=== PATIENT | female | born 1975 | race Hispanic/Latino ===

== ENCOUNTER 2020-11-01 19:49 | Inpatient (IN) | payer OTHER ==
[~2020-11-01] VITALS: Ht 162.6 cm; Wt 109.3 kg
[2020-11-01 20:47] LABS: ABG BASE EXCESS 1.9 mmol/L (-2.0-3.0); ABG OXYGEN SATURATION 91.4 % (95.0-99.0); ABG PCO2 35 mmHg (32-45)
[2020-11-01 21:22] LABS: CREATININE 0.7 mg/dL (0.5-1.5); INR 0.92 (0.85-1.15); PARTIAL THROMBOPLASTIN TIME 31.9 SEC (26.3-35.5); POTASSIUM 3.1 mmol/L (3.5-5.1)
[2020-11-01 21:27] LABS: ALBUMIN 3.3 g/dL (3.5-5.0); BILIRUBIN,TOTAL 0.4 mg/dL (0.2-1.0); TOTAL PROTEIN, SERUM 8.4 g/dL (6.0-8.3)
[2020-11-01 21:44] LABS: BASOPHILS % (AUTO) 0.2 % (0.0-5.0); EOSINOPHILS % (AUTO) 1.8 % (0.0-8.0); HEMATOCRIT 41.9 % (36-48); MEAN CORPUSCULAR HEMOGLOBIN 29.5 pg (27.0-33.0); MEAN CORPUSCULAR HGB CONC 33.2 g/dL (32.0-36.0); MONOCYTES % (AUTO) 9.6 % (3.0-13.0); NEUTROPHILS % (AUTO) 61.9 % (40.0-77.0); PLATELET COUNT (AUTO) 238 K/uL (130-400); RED BLOOD CELL COUNT(AUTO) 4.71 MIL/uL (4.00-5.50); RED CELL DISTRIBUTION WIDTH 12.6 % (11.0-15.5); WHITE BLOOD COUNT (AUTO) 6.5 K/uL (4.8-10.8)
[2020-11-01] MEDS ORDERED: DEXAMETHASONE SOD PHOSPHATE 10MG/ML 1ML VIAL ONE ×2 (21:44→21:58)
[2020-11-01] MEDS ORDERED: SODIUM CHLORIDE 0.9% 1000ML 1,000 ML IV ONE (21:44)
[2020-11-01 21:45] LABS: B-TYPE NATRIURETIC PEPTIDE < 5 pg/mL (0-100)
[2020-11-01] MEDS ORDERED: ACETAMINOPHEN EXTRA STRENGTH 500 MG TABLET ONE ×2 (21:45→21:51)
[2020-11-01] MEDS ORDERED: CEFTRIAXONE SODIUM 1 GM ONE (21:45)
[2020-11-01] MEDS ORDERED: AZITHROMYCIN 500MG+NS 250ML 250 ML IV ONE (21:45)
[2020-11-01] MEDS ORDERED: DOXYCYCLINE 100MG+NS 250ML 250 ML IV ONE (21:58)
[2020-11-01 22:27] LABS: APPEARANCE,URINE Clear (CLEAR); BILIRUBIN,URINE Small (NEGATIVE); COLOR,URINE Dark Yellow (YELLOW); GLUCOSE, URINE (UA) Negative (NEGATIVE); KETONES,URINE >=80 mg/dL (NEGATIVE); LEUKOCYTE ESTERASE ,URINE Negative (NEGATIVE); NITRATE,URINE Negative (NEGATIVE); OCCULT BLOOD,URINE Trace (NEGATIVE); PROTEIN,URINE POS 2+ mg/dL (NEGATIVE)
[2020-11-01] MEDS ORDERED: ACETAMINOPHEN 325 MG TAB PO PRN ×2 (22:30)
[2020-11-01] MEDS ORDERED: CEFTRIAXONE SODIUM 1 GM IV SCH (22:30)
[2020-11-01] MEDS ORDERED: PHARMACY COMMUNICATION**REMDESIVIR ORDER MISC SCH (22:30)
[2020-11-01] MEDS ORDERED: ERGOCALCIFEROL (VITAMIN D2) 50,000 UNIT CAPSULE PO ONE (22:30)
[2020-11-01] MEDS ORDERED: LACTULOSE 20 GM/30 ML UDCUP PO PRN (22:30)
[2020-11-01] MEDS ORDERED: ONDANSETRON HCL 4 MG/2 ML VIAL IV PRN (22:30)
[2020-11-01 22:43] LABS: BACTERIA,URINE Few /HPF (None Seen); MUCUS,URINE Few LPF (None Seen); WBC,URINE 0-1 /HPF (0-1)
[2020-11-01 23:07] LABS: CRP QUANTITATIVE 36.8 mg/L (0.00-9.0)
[2020-11-01] MEDS ORDERED: MAG HYDROX/AL HYDROX/SIMETH ES 30 ML SUSP UDCUP ONE (23:18)
[2020-11-01] MEDS ORDERED: LIDOCAINE HCL 2% VISCOUS 15 ML UDCUP ONE (23:18)
[2020-11-01] MEDS ORDERED: POTASSIUM CHLORIDE 10% ELIXIR 20 MEQ/15 ML UDCUP PO PRN (23:30)
[2020-11-01] MEDS ORDERED: LIDOCAINE HCL-MPF 1% 2ML VIAL IV PRN (23:30)
[2020-11-01] MEDS ORDERED: POTASSIUM CHLORIDE 10MEQ/100ML 100 ML IV PRN (23:30)
[2020-11-01] MEDS ORDERED: ALBUTEROL INHALER 90MCG/INH IH PRN (23:30)
[2020-11-02 03:48] LABS: BASOPHILS % (AUTO) 0.3 % (0.0-5.0); HEMATOCRIT 39.4 % (36-48); LYMPHOCYTES % (AUTO) 28.6 % (21.0-51.0); MEAN CORPUSCULAR HEMOGLOBIN 29.7 pg (27.0-33.0); MONOCYTES % (AUTO) 3.4 % (3.0-13.0); NEUTROPHILS % (AUTO) 67.2 % (40.0-77.0); PLATELET COUNT (AUTO) 224 K/uL (130-400); RED BLOOD CELL COUNT(AUTO) 4.38 MIL/uL (4.00-5.50); RED CELL DISTRIBUTION WIDTH 12.6 % (11.0-15.5); WHITE BLOOD COUNT (AUTO) 3.8 K/uL (4.8-10.8)
[2020-11-02] MEDS ORDERED: IOHEXOL-350 75 ML VIAL IV ONE (03:54)
[2020-11-02 05:11] LABS: ALBUMIN 2.9 g/dL (3.5-5.0); BILIRUBIN,TOTAL 0.3 mg/dL (0.2-1.0); CREATININE 0.7 mg/dL (0.5-1.5); CRP QUANTITATIVE 32.7 mg/L (0.00-9.0); POTASSIUM 3.7 mmol/L (3.5-5.1); TOTAL PROTEIN, SERUM 7.7 g/dL (6.0-8.3)
[2020-11-02] MEDS ORDERED: ENOXAPARIN SODIUM 60 MG/0.6 ML SQ ONE (08:21)
[2020-11-02] MEDS ORDERED: ASCORBIC ACID 500 MG TAB ONE (08:22)
[2020-11-02] MEDS ORDERED: ZINC SULFATE 220 CAPSULE ONE (08:22)
[2020-11-02] MEDS ORDERED: CEFTRIAXONE SODIUM 1 GM ONE (08:22)
[2020-11-02] MEDS ORDERED: FAMOTIDINE 20MG TAB 20 MG TAB ONE (08:22)
[2020-11-02] MEDS ORDERED: PHARMACY COMMUNICATION MISC SCH (08:30)
[2020-11-02] MEDS: FAMOTIDINE 20MG TAB 20 MG TAB PO SCH ×2 (09:00→21:00)
[2020-11-02] MEDS ORDERED: ENOXAPARIN SODIUM 40 MG/0.4 ML SYRINGE SQ SCH (09:00)
[2020-11-02] MEDS: ZINC SULFATE 220 CAPSULE PO SCH (09:00)
[2020-11-02] MEDS: ASCORBIC ACID 500 MG TAB PO SCH (09:00)
[2020-11-02 12:43] LABS: HEMOGLOBIN A1C 5.9 % (4.0-6.0)
[2020-11-02] MEDS ORDERED: SODIUM CHLORIDE 0.9% 250 ML IV ONE ×2 (13:38→17:08)
[2020-11-02 20:27] VITALS: BP 137/74
[2020-11-02] MEDS: INSULIN GLARGINE 100 UNITS/ML 10 ML VIAL SQ SCH (21:00)
[2020-11-02] MEDS: AZITHROMYCIN 500MG+NS 250ML 250 ML IV SCH ×2 (21:33→23:20)
[2020-11-02] MEDS: DEXAMETHASONE SOD PHOSPHATE 4 MG/ML 1ML VIAL IVP SCH (21:33)
[2020-11-02] MEDS: ENOXAPARIN SODIUM 60 MG/0.6 ML SQ SCH (21:36)
[2020-11-02 23:25] VITALS: BP 108/63
[2020-11-03 04:12] VITALS: BP 112/71
[2020-11-03 04:19] LABS: BASOPHILS % (AUTO) 0.1 % (0.0-5.0); HEMATOCRIT 36.2 % (36-48); LYMPHOCYTES % (AUTO) 7.8 % (21.0-51.0); MEAN CORPUSCULAR HEMOGLOBIN 29.5 pg (27.0-33.0); MEAN CORPUSCULAR HGB CONC 32.9 g/dL (32.0-36.0); MEAN CORPUSCULAR VOLUME 89.8 fL (79-99); MONOCYTES % (AUTO) 4.3 % (3.0-13.0); NEUTROPHILS % (AUTO) 87.3 % (40.0-77.0); PLATELET COUNT (AUTO) 266 K/uL (130-400); RED BLOOD CELL COUNT(AUTO) 4.03 MIL/uL (4.00-5.50); RED CELL DISTRIBUTION WIDTH 12.7 % (11.0-15.5); WHITE BLOOD COUNT (AUTO) 12.9 K/uL (4.8-10.8)
[2020-11-03 04:41] LABS: ALBUMIN 2.9 g/dL (3.5-5.0); BILIRUBIN,TOTAL 0.3 mg/dL (0.2-1.0); CREATININE 0.7 mg/dL (0.5-1.5); CRP QUANTITATIVE 48.5 mg/L (0.00-9.0); POTASSIUM 3.2 mmol/L (3.5-5.1); TOTAL PROTEIN, SERUM 7.5 g/dL (6.0-8.3)
[2020-11-03 07:00] VITALS: BP 103/62
[2020-11-03] MEDS ORDERED: POTASSIUM CHLORIDE 20 MEQ ERTAB PO SCH (08:45)
[2020-11-03] MEDS: ZINC SULFATE 220 CAPSULE PO SCH (09:40)
[2020-11-03] MEDS: FAMOTIDINE 20MG TAB 20 MG TAB PO SCH ×2 (09:40→20:25)
[2020-11-03] MEDS: ENOXAPARIN SODIUM 60 MG/0.6 ML SQ SCH ×2 (09:40→20:26)
[2020-11-03] MEDS: ASCORBIC ACID 500 MG TAB PO SCH (09:40)
[2020-11-03 11:00] VITALS: BP 128/71
[2020-11-03 16:00] VITALS: BP 115/69
[2020-11-03 19:50] VITALS: BP 131/58
[2020-11-03] MEDS: DEXAMETHASONE SOD PHOSPHATE 4 MG/ML 1ML VIAL IVP SCH (20:26)
[2020-11-03] MEDS: INSULIN GLARGINE 100 UNITS/ML 10 ML VIAL SQ SCH (20:27)
[2020-11-03] MEDS: POTASSIUM CHLORIDE 20 MEQ ERTAB PO PRN (22:38)
[2020-11-04] VITALS (7 sets, daily range): BP systolic 99–140; BP diastolic 61–80
[2020-11-04 04:23] LABS: BASOPHILS % (AUTO) 0.2 % (0.0-5.0); HEMATOCRIT 36.7 % (36-48); LYMPHOCYTES % (AUTO) 8.5 % (21.0-51.0); MEAN CORPUSCULAR HEMOGLOBIN 29.4 pg (27.0-33.0); MEAN CORPUSCULAR HGB CONC 32.4 g/dL (32.0-36.0); MEAN CORPUSCULAR VOLUME 90.6 fL (79-99); NEUTROPHILS % (AUTO) 86.7 % (40.0-77.0); PLATELET COUNT (AUTO) 315 K/uL (130-400); RED BLOOD CELL COUNT(AUTO) 4.05 MIL/uL (4.00-5.50); RED CELL DISTRIBUTION WIDTH 13.1 % (11.0-15.5); WHITE BLOOD COUNT (AUTO) 12.7 K/uL (4.8-10.8)
[2020-11-04 04:46] LABS: ALBUMIN 2.6 g/dL (3.5-5.0); BILIRUBIN,TOTAL 0.3 mg/dL (0.2-1.0); CREATININE 0.6 mg/dL (0.5-1.5); CRP QUANTITATIVE 118.6 mg/L (0.00-9.0); POTASSIUM 3.8 mmol/L (3.5-5.1); TOTAL PROTEIN, SERUM 7.5 g/dL (6.0-8.3)
[2020-11-04] MEDS: ZINC SULFATE 220 CAPSULE PO SCH (08:26)
[2020-11-04] MEDS: ENOXAPARIN SODIUM 60 MG/0.6 ML SQ SCH ×2 (08:26→20:55)
[2020-11-04] MEDS: FAMOTIDINE 20MG TAB 20 MG TAB PO SCH ×2 (08:27→20:54)
[2020-11-04] MEDS: ASCORBIC ACID 500 MG TAB PO SCH (08:27)
[2020-11-04] MEDS ORDERED: PHARMACY COMMUNICATION MISC SCH (08:45)
[2020-11-04] MEDS ORDERED: REMDESIVIR (EUA) 520 200 MG in SODIUM CHLORIDE 0.9% 250 ML IV ONE (09:00)
[2020-11-04] MEDS ORDERED: COMPOUND IV REFRIGERATED 1 EACH IVSOLN MISC PRN (09:00)
[2020-11-04] MEDS: DEXAMETHASONE SOD PHOSPHATE 4 MG/ML 1ML VIAL IVP SCH ×2 (09:43→20:54)
[2020-11-04] MEDS: POLYETHYLENE GLYCOL 3350 17 GM POWD.PACK PO SCH (11:59)
[2020-11-04] MEDS: DOCUSATE SODIUM 100 MG CAP PO SCH (11:59)
[2020-11-04] MEDS: POTASSIUM CHLORIDE 20 MEQ ERTAB PO PRN (12:10)
[2020-11-04] MEDS ORDERED: HYDROMORPHONE 1 MG/1 ML AMP ONE (23:18)
[2020-11-04] MEDS: HYDROMORPHONE 1 MG/1 ML AMP IVP PRN (23:54)
[2020-11-05] VITALS (7 sets, daily range): BP systolic 101–125; BP diastolic 52–73
[2020-11-05] MEDS: HYDROMORPHONE 1 MG/1 ML AMP IVP PRN ×4 (01:43→05:38)
[2020-11-05 05:05] LABS: ALBUMIN 2.6 g/dL (3.5-5.0); BILIRUBIN,DIRECT 0.1 mg/dL (0.0-0.3); BILIRUBIN,TOTAL 0.3 mg/dL (0.2-1.0); CREATININE 0.6 mg/dL (0.5-1.5); POTASSIUM 4.1 mmol/L (3.5-5.1); TOTAL PROTEIN, SERUM 7.6 g/dL (6.0-8.3)
[2020-11-05 06:08] LABS: LACTATE DEHYDROGENASE 276 U/L (81-234)
[2020-11-05] MEDS: POLYETHYLENE GLYCOL 3350 17 GM POWD.PACK PO SCH ×2 (08:15→11:30)
[2020-11-05] MEDS: FAMOTIDINE 20MG TAB 20 MG TAB PO SCH ×2 (08:16→21:25)
[2020-11-05] MEDS: ZINC SULFATE 220 CAPSULE PO SCH (08:16)
[2020-11-05] MEDS: ASCORBIC ACID 500 MG TAB PO SCH (08:16)
[2020-11-05] MEDS: DEXAMETHASONE SOD PHOSPHATE 4 MG/ML 1ML VIAL IVP SCH ×2 (08:17→21:25)
[2020-11-05] MEDS: REMDESIVIR (EUA) 520 100 MG in SODIUM CHLORIDE 0.9% 250 ML IV SCH (08:19)
[2020-11-05] MEDS: ENOXAPARIN SODIUM 60 MG/0.6 ML SQ SCH ×2 (08:19→21:26)
[2020-11-05] MEDS: DOCUSATE SODIUM 100 MG CAP PO SCH (11:30)
[2020-11-06] VITALS: BP 114/55
[2020-11-06 03:56] LABS: BASOPHILS % (AUTO) 0.2 % (0.0-5.0); HEMATOCRIT 38.6 % (36-48); LYMPHOCYTES % (AUTO) 16.6 % (21.0-51.0); MEAN CORPUSCULAR HEMOGLOBIN 29.2 pg (27.0-33.0); MEAN CORPUSCULAR HGB CONC 32.1 g/dL (32.0-36.0); MEAN CORPUSCULAR VOLUME 90.8 fL (79-99); MONOCYTES % (AUTO) 4.6 % (3.0-13.0); PLATELET COUNT (AUTO) 472 K/uL (130-400); RED BLOOD CELL COUNT(AUTO) 4.25 MIL/uL (4.00-5.50); WHITE BLOOD COUNT (AUTO) 9.1 K/uL (4.8-10.8)
[2020-11-06 03:58] VITALS: BP 109/70
[2020-11-06 04:11] LABS: CREATININE 0.5 mg/dL (0.5-1.5); CRP QUANTITATIVE 24.5 mg/L (0.00-9.0); POTASSIUM 4.3 mmol/L (3.5-5.1)
[2020-11-06] MEDS: PHARMACY COMMUNICATION MISC SCH (06:29)
[2020-11-06 07:00] VITALS: BP 114/47
[2020-11-06] MEDS: POLYETHYLENE GLYCOL 3350 17 GM POWD.PACK PO SCH ×2 (09:00→11:14)
[2020-11-06] MEDS: ASCORBIC ACID 500 MG TAB PO SCH (09:14)
[2020-11-06] MEDS: DEXAMETHASONE SOD PHOSPHATE 4 MG/ML 1ML VIAL IVP SCH (09:14)
[2020-11-06] MEDS: ZINC SULFATE 220 CAPSULE PO SCH (09:14)
[2020-11-06] MEDS: FAMOTIDINE 20MG TAB 20 MG TAB PO SCH ×2 (09:14→20:17)
[2020-11-06] MEDS: ENOXAPARIN SODIUM 60 MG/0.6 ML SQ SCH ×2 (09:15→20:17)
[2020-11-06] MEDS: REMDESIVIR (EUA) 520 100 MG in SODIUM CHLORIDE 0.9% 250 ML IV SCH (09:34)
[2020-11-06 11:00] VITALS: BP 115/65
[2020-11-06] MEDS: DOCUSATE SODIUM 100 MG CAP PO SCH (11:14)
[2020-11-06 16:00] VITALS: BP 99/69
[2020-11-06 20:00] VITALS: BP 106/62
[2020-11-07] VITALS (7 sets, daily range): BP systolic 90–111; BP diastolic 48–81
[2020-11-07 04:53] LABS: BASOPHILS % (AUTO) 0.5 % (0.0-5.0); EOSINOPHILS % (AUTO) 0.1 % (0.0-8.0); HEMATOCRIT 39.7 % (36-48); LYMPHOCYTES % (AUTO) 28.3 % (21.0-51.0); MEAN CORPUSCULAR HEMOGLOBIN 29.2 pg (27.0-33.0); MEAN CORPUSCULAR HGB CONC 32.2 g/dL (32.0-36.0); MEAN CORPUSCULAR VOLUME 90.6 fL (79-99); MONOCYTES % (AUTO) 6.9 % (3.0-13.0); NEUTROPHILS % (AUTO) 60.3 % (40.0-77.0); PLATELET COUNT (AUTO) 542 K/uL (130-400); RED BLOOD CELL COUNT(AUTO) 4.38 MIL/uL (4.00-5.50); RED CELL DISTRIBUTION WIDTH 12.8 % (11.0-15.5)
[2020-11-07 05:18] LABS: CREATININE 0.6 mg/dL (0.5-1.5); CRP QUANTITATIVE 10.4 mg/L (0.00-9.0); POTASSIUM 3.8 mmol/L (3.5-5.1)
[2020-11-07] MEDS: PHARMACY COMMUNICATION MISC SCH (06:00)
[2020-11-07] MEDS: ASCORBIC ACID 500 MG TAB PO SCH (08:27)
[2020-11-07] MEDS: POLYETHYLENE GLYCOL 3350 17 GM POWD.PACK PO SCH ×2 (08:27→11:30)
[2020-11-07] MEDS: ZINC SULFATE 220 CAPSULE PO SCH (08:27)
[2020-11-07] MEDS: FAMOTIDINE 20MG TAB 20 MG TAB PO SCH ×2 (08:27→20:09)
[2020-11-07] MEDS: ENOXAPARIN SODIUM 60 MG/0.6 ML SQ SCH ×2 (08:28→20:10)
[2020-11-07] MEDS: DEXAMETHASONE 4 MG TAB PO SCH (08:29)
[2020-11-07 15:07] LABS: ALANINE AMINOTRANSFERASE 87 U/L (12-78); ALBUMIN 2.8 g/dL (3.5-5.0); ASPARTATE AMINOTRANSFERASE 45 U/L (10-37); BILIRUBIN,DIRECT < 0.1 mg/dL (0.0-0.3); BILIRUBIN,TOTAL 0.2 mg/dL (0.2-1.0); TOTAL PROTEIN, SERUM 7.3 g/dL (6.0-8.3)
[2020-11-07] MEDS: REMDESIVIR (EUA) 520 100 MG in SODIUM CHLORIDE 0.9% 250 ML IV SCH (15:30)
[2020-11-08 03:26] VITALS: BP 110/50
[2020-11-08 04:12] LABS: BASOPHILS % (AUTO) 0.5 % (0.0-5.0); EOSINOPHILS % (AUTO) 0.9 % (0.0-8.0); HEMATOCRIT 41.1 % (36-48); LYMPHOCYTES % (AUTO) 38.2 % (21.0-51.0); MEAN CORPUSCULAR HEMOGLOBIN 29.6 pg (27.0-33.0); MEAN CORPUSCULAR HGB CONC 32.6 g/dL (32.0-36.0); MEAN CORPUSCULAR VOLUME 90.7 fL (79-99); MONOCYTES % (AUTO) 8.3 % (3.0-13.0); NEUTROPHILS % (AUTO) 47.9 % (40.0-77.0); PLATELET COUNT (AUTO) 558 K/uL (130-400); RED BLOOD CELL COUNT(AUTO) 4.53 MIL/uL (4.00-5.50); RED CELL DISTRIBUTION WIDTH 13.1 % (11.0-15.5); WHITE BLOOD COUNT (AUTO) 11.3 K/uL (4.8-10.8)
[2020-11-08 04:33] LABS: ALBUMIN 2.7 g/dL (3.5-5.0); BILIRUBIN,DIRECT 0.1 mg/dL (0.0-0.3); BILIRUBIN,TOTAL 0.4 mg/dL (0.2-1.0); CREATININE 0.6 mg/dL (0.5-1.5); POTASSIUM 3.9 mmol/L (3.5-5.1); TOTAL PROTEIN, SERUM 7.8 g/dL (6.0-8.3)
[2020-11-08 08:00] VITALS: BP 102/51
[2020-11-08] MEDS: POLYETHYLENE GLYCOL 3350 17 GM POWD.PACK PO SCH ×2 (09:00→10:03)
[2020-11-08] MEDS: ASCORBIC ACID 500 MG TAB PO SCH (10:01)
[2020-11-08] MEDS: ZINC SULFATE 220 CAPSULE PO SCH (10:01)
[2020-11-08] MEDS: DEXAMETHASONE 4 MG TAB PO SCH (10:02)
[2020-11-08] MEDS: FAMOTIDINE 20MG TAB 20 MG TAB PO SCH (10:02)
[2020-11-08] MEDS: ENOXAPARIN SODIUM 60 MG/0.6 ML SQ SCH (10:02)
[2020-11-08 12:58] VITALS: BP 110/55
[2020-11-08] MEDS: REMDESIVIR (EUA) 520 100 MG in SODIUM CHLORIDE 0.9% 250 ML IV SCH (14:52)
[2020-11-08] MEDS ORDERED: DEXA6TAB PO (17:37)
[2020-11-08] MEDS ORDERED: ASCO500T20 PO (17:37)
[2020-11-08] MEDS ORDERED: ALBUHFA IH (17:37)
[2020-11-08] MEDS ORDERED: ZINC220C6 PO (17:37)
[2020-11-08] MEDS ORDERED: APIX2.5T PO (17:37)
== END 2020-11-08 19:19 | disposition home or self-care (01) | DRG 177 ==
LOC: EDH 19:49 → EDHIP 19:50 → 2AH 11-02 20:10
PROVIDERS: ADMIT Family Medicine; ATTEND Family Medicine
PROC: XW13325 Transfusion of Convalescent Plasma (Nonautologous) into Peripheral Vein, Percutaneous Approach, New Technology Group 5 (ICD-10-PCS; principal; 2020-11-01)
PROC: XW033E5 Introduction of Remdesivir Anti-infective into Peripheral Vein, Percutaneous Approach, New Technology Group 5 (ICD-10-PCS; 2020-11-01)
DX: U07.1 COVID-19 (principal); J12.89 Other viral pneumonia; J96.01 Acute respiratory failure with hypoxia; E44.0 Moderate protein-calorie malnutrition; J98.11 Atelectasis; Z68.41 Body mass index [BMI] 40.0-44.9, adult; E87.6 Hypokalemia; D72.819 Decreased white blood cell count, unspecified; E66.01 Morbid (severe) obesity due to excess calories; E11.9 Type 2 diabetes mellitus without complications; K59.09 Other constipation; Z90.49 Acquired absence of other specified parts of digestive tract; Z86.19 Personal history of other infectious and parasitic diseases; Z90.711 Acquired absence of uterus with remaining cervical stump; Z79.01 Long term (current) use of anticoagulants
CPT/HCPCS: 36415; 36600; 71045; 71275; 80048; 80053; 80076; 81001; 82550; 82728; 82803; 82948; 83036; 83605; 83615; 83735; 83880; 84145; 84484; 85025; 85378; 85610; 85730; 86140; 86900; 86901; 86927; 87040; 87071; 87205; 87426; 87804; 93005; G0378; J0456; J0696; J1100; J1170; J1650; J3490; J7030; J7050; J8540; Q9967